=== PATIENT | female | born 1940 | race Caucasian/White ===

== ENCOUNTER → 2018-04-12 | Outpatient (CLI) | payer BC ==
--- NOTE | 2018-04-15 10:21 | MM ---
Reason for exam: screening (asymptomatic). Last mammogram was performed 1 year and 11 months ago. History: Patient is postmenopausal, history of other cancer, and is nulliparous. Took estrogen for 25 years. Physical Findings: A clinical breast exam by your physician is recommended on an annual basis and results should be correlated with mammographic findings. MG 3D Screening Mammo W/Cad Bilateral CC and MLO view(s) were taken. Prior study comparison: May 16, 2016, bilateral MG 3d screening mammo w/cad. The breast tissue is heterogeneously dense. This may lower the sensitivity of mammography. There is no discrete abnormality. No significant changes when compared with prior studies. ASSESSMENT: Benign, BI-RAD 2 RECOMMENDATION: Routine screening mammogram of both breasts in 1 year.
== END | disposition home or self-care (01) ==
LOC: RADMAMWWP 10:56
PROVIDERS: ATTEND Internal Medicine
DX: Z12.31 Encounter for screening mammogram for malignant neoplasm of breast (principal)
CPT/HCPCS: 77063; 77067

== ENCOUNTER 2024-02-14 10:41 | Observation (INO) | payer BC ==
--- NOTE | 2024-02-14 11:17 | ED ---
General Adult HPI - General Chief complaint: Chest Pain Stated complaint: Chest Pain Time Seen by Provider: 02/14/24 10:53 Source: patient, family Mode of arrival: ambulatory Limitations: no limitations - History of Present Illness Initial comments: Dictation was produced using [employer] dictation software. please excuse any grammatical, word or spelling errors. Chief Complaint: 84-year-old female presents to the emergency department for chest pressure History of Present Illness: Patient 84-year-old female she states she has a history of leaky valve. Presents to the emergency department after having chest pressure while walking. Patient states that she has no history of coronary artery disease. Denies any family history. Patient states while she was walking her pressure was noticeable. She went to rest and her symptoms resolved tried to walk again pressure came back. Chest pain is nonradiating. Does not go down the extremity or to the jaw or shoulder. No associated diaphoresis or nausea. The ROS documented in this emergency department record has been reviewed and confirmed by me. Those systems with pertinent positive or negative responses have been documented in the HPI. All other systems are other negative and/or noncontributory. - Related Data Home Medications Medication Instructions Recorded Confirmed Albuterol Inhaler [Ventolin Hfa 1 - 2 puff INHALATION RT-QID PRN 02/14/24 02/14/24 Inhaler] Alendronate Sodium [Fosamax] 70 mg PO FR 02/14/24 02/14/24 Atorvastatin [Lipitor] 10 mg PO HS 02/14/24 02/14/24 Calcium Carb/Mag Ox/Zinc Sulf 1 tab PO DAILY 02/14/24 02/14/24 [Ljs-Ztq-Qbqb 334-134-5 mg Tab] Cholecalciferol (Vitamin D3) 75 mcg PO DAILY 02/14/24 02/14/24 [Vitamin D3 (3000 Iu)] Metoprolol Succinate (ER) [Toprol 12.5 mg PO HS 02/14/24 02/14/24 Xl] amLODIPine [Norvasc] 5 mg PO HS 02/14/24 02/14/24 lisinopriL 40 mg PO HS 02/14/24 02/14/24 Allergies Allergy/AdvReac Type Severity Reaction Status Date / Time No Known Allergies Allergy Verified 02/14/24 11:25 Review of Systems ROS Statement: Those systems with pertinent positive or pertinent negative responses have been documented in the HPI. ROS Other: All systems not noted in ROS Statement are negative. Past Medical History Past Medical History: Hypertension Additional Past Medical History / Comment(s): aortic valve leaking Past Surgical History: Hysterectomy General Exam - General Exam Comments Initial Comments: PHYSICAL EXAM: General Impression: Alert and oriented x3, not in acute distress HEENT: Normocephalic atraumatic, extra-ocular movements intact, pupils equal and reactive to light bilaterally, mucous membranes moist. Cardiovascular: Heart regular rate and rhythm Chest: Able to complete full sentences, no retractions, no tachypnea Abdomen: abdomen soft, non-tender, non-distended, no organomegaly Musculoskeletal: Pulses present and equal in all extremities, no peripheral edema Motor: no focal deficits noted Neurological: CN II-XII grossly intact, no focal motor or sensory deficits noted Skin: Intact with no visualized rashes Psych: Normal affect and mood Limitations: no limitations Course Vital Signs 02/14/24 10:45 Temperature 97.4 F L Pulse Rate 73 Respiratory 20 Rate Blood Pressure 154/67 O2 Sat by Pulse 98 Oximetry EKG Findings - EKG Comments: EKG Findings:: My EKG interpretation: Ventricular rate 68, sinus rhythm,. 148, cures 94, QTc 421. No CO prolongation, no QTC prolongation, no ST or T-wave changes noted. Overall, this EKG is unremarkable Medical Decision Making - Medical Decision Making Was pt. sent in by a medical professional or institution ([facility], WAREHOUSE ASSOCIATE, urgent care, hospital, or detention...) When possible be specific @ -No Did you speak to anyone other than the patient for history (EMS, parent, family, police, friend...)? What history was obtained from this source @ -No Did you review nursing and triage notes (agree or disagree)? Why? @ -I reviewed and agree with nursing and triage notes Were old charts reviewed (outside hosp., previous admission, EMS record, old EKG, old radiological studies, urgent care reports/EKG's, detention records)? Report findings @ -No old charts were reviewed Differential Diagnosis (chest pain, altered mental status, abdominal pain women, abdominal pain men, vaginal bleeding, musculoskeletal, weakness, fever, dyspnea, syncope, headache, dizziness, GI bleed, back pain, seizure, CVA, palpatations, mental health)? @ -Differential Chest Pain: Stable Angina, Unstable Angina, STEMI, NSTEMI Aortic Dissection, Pneumothorax, Musculoskeletal, Esophageal Spasm GERD, Cholecystitis, Pancreatitis, Zoster, this is not meant to be an all-inclusive list. EKG interpreted by me (3pts min.). @ -See above X-rays interpreted by me (1pt min.). @ -Chest x-ray is nonacute CT interpreted by me (1pt min.). @ -None done U/S interpreted by me (1pt. min.). @ -None done What testing was considered but not performed or refused? (CT, X-rays, U/S, labs)? Why? @ -None What meds were considered but not given or refused? Why? @ -None Was smoking cessation discussed for >3mins.? @ -No Were there social determinants of health that impacted care today? How? (Homelessness, low income, unemployed, alcoholism, drug addiction, transportation, low edu. Level, literacy, decrease access to med. care, fdc, re hab)? @ -No Was there de-escalation of care discussed even if they declined (Discuss DNR or withdrawal of care, Hospice)? DNR status @ -No What co-morbidities impacted this encounter? (DM, HTN, Smoking, COPD, CAD, Cancer, CVA, ARF, Chemo, Hep., AIDS, mental health diagnosis, sleep apnea, morbid obesity)? @ -Old age Was patient admitted / discharged? Hospital course, mention meds given and route , prescriptions, significant lab abnormalities, going to OR and other pertinent info. @ -84-year-old female presents to the ER for exertional chest pressure. Vital signs stable. EKG is unremarkable. Labs and imaging are negative. Troponin is negative. Patient has elevated heart score will be admitted with consultation to cardiology. Patient given aspirin. Patient agreeable with disposition plan. Did you discuss the management of the patient with other professionals (professionals i.e. , PA, WAREHOUSE ASSOCIATE, lab, RT, psych nurse, social media specialist, senior sustainability advisor, teacher, health officer, rehabilitation caseworker)? Give summary @ -No Was critical care preformed (if so, how long)? @ -No Undiagnosed new problem with uncertain prognosis? @ -No Drug Therapy requiring intensive monitoring for toxicity (Heparin, Nitro, Insulin, Cardizem)? @ -No Were any procedures done? @ -No Diagnosis/symptom? Acute, or Chronic, or Acute on Chronic? Uncomplicated (without systemic symptoms) or Complicated (systemic symptoms)? @ -Unstable angina Side effects of treatment? @ -No Exacerbation, Progression, or Severe Exacerbation? @ -No Poses a threat to life or bodily function? How? (Chest pain, [place], [place], pneumonia, PE, COPD, DKA, ARF, appy, cholecystitis, CVA, Diverticulitis, Homicidal, Suicidal, threat to staff... and all critical care pts) @ -yes - Lab Data Result diagrams: 02/14/24 10:57 02/14/24 10:57 Lab Results 02/14/24 02/14/24 02/14/24 Range/Units 10:57 10:57 10:57 WBC 7.3 (3.8-10.6) k/uL RBC 3.80 (3.80-5.40) m/uL Hgb 11.6 (11.4-16.0) gm/dL Hct 36.8 (34.0-46.0) % MCV 96.7 (80.0-100.0) fL MCH 30.4 (25.0-35.0) pg MCHC 31.4 (31.0-37.0) g/dL RDW 12.4 (11.5-15.5) % Plt Count 320 (150-450) k/uL MPV 8.0 Neutrophils % 59 % Lymphocytes % 30 % Monocytes % 6 % Eosinophils % 2 % Basophils % 1 % Neutrophils # 4.3 (1.3-7.7) k/uL Lymphocytes # 2.2 (1.0-4.8) k/uL Monocytes # 0.4 (0-1.0) k/uL Eosinophils # 0.2 (0-0.7) k/uL Basophils # 0.1 (0-0.2) k/uL PT 10.2 (10.0-12.5) sec INR 0.9 (<1.2) APTT 23.7 (22.0-30.0) sec Sodium 137 (137-145) mmol/L Potassium 5.2 H (3.5-5.1) mmol/L Chloride 107 (98-107) mmol/L Carbon Dioxide 23 (22-30) mmol/L Anion Gap 7 mmol/L BUN 18 H (7-17) mg/dL Creatinine 0.88 (0.52-1.04) mg/dL Est GFR (CKD-EPI)AfAm 69 (>60 ml/min/1.73 sqM) Est GFR (CKD-EPI)NonAf 60 (>60 ml/min/1.73 sqM) Glucose 105 H (74-99) mg/dL Calcium 10.1 (8.4-10.2) mg/dL Magnesium 1.8 (1.6-2.3) mg/dL Total Bilirubin 0.6 (0.2-1.3) mg/dL AST 29 (14-36) U/L ALT 17 (4-34) U/L Alkaline Phosphatase 86 (38-126) U/L Troponin I (0.000-0.034) ng/mL Total Protein 6.7 (6.3-8.2) g/dL Albumin 4.3 (3.5-5.0) g/dL 02/14/24 Range/Units 10:57 WBC (3.8-10.6) k/uL RBC (3.80-5.40) m/uL Hgb (11.4-16.0) gm/dL Hct (34.0-46.0) % MCV (80.0-100.0) fL MCH (25.0-35.0) pg MCHC (31.0-37.0) g/dL RDW (11.5-15.5) % Plt Count (150-450) k/uL MPV Neutrophils % % Lymphocytes % % Monocytes % % Eosinophils % % Basophils % % Neutrophils # (1.3-7.7) k/uL Lymphocytes # (1.0-4.8) k/uL Monocytes # (0-1.0) k/uL Eosinophils # (0-0.7) k/uL Basophils # (0-0.2) k/uL PT (10.0-12.5) sec INR (<1.2) APTT (22.0-30.0) sec Sodium (137-145) mmol/L Potassium (3.5-5.1) mmol/L Chloride (98-107) mmol/L Carbon Dioxide (22-30) mmol/L Anion Gap mmol/L BUN (7-17) mg/dL Creatinine (0.52-1.04) mg/dL Est GFR (CKD-EPI)AfAm (>60 ml/min/1.73 sqM) Est GFR (CKD-EPI)NonAf (>60 ml/min/1.73 sqM) Glucose (74-99) mg/dL Calcium (8.4-10.2) mg/dL Magnesium (1.6-2.3) mg/dL Total Bilirubin (0.2-1.3) mg/dL AST (14-36) U/L ALT (4-34) U/L Alkaline Phosphatase (38-126) U/L Troponin I <0.012 (0.000-0.034) ng/mL Total Protein (6.3-8.2) g/dL Albumin (3.5-5.0) g/dL Disposition Clinical Impression: Unstable angina Disposition: ADMITTED IP TO THIS HOSP Condition: Fair Referrals: Cheo Chairez MD [Primary Care Provider] - 1-2 days Decision Time: 12:41
[2024-02-14 11:20] LABS: Basophils # (A) 0.1 k/uL (0-0.2); Basophils % (A) 1 %; Eosinophils # (A) 0.2 k/uL (0-0.7); Eosinophils % (A) 2 %; HCT 36.8 % (34.0-46.0); HGB 11.6 gm/dL (11.4-16.0); Lymphocytes # (A) 2.2 k/uL (1.0-4.8); Lymphocytes % (A) 30 %; MCH 30.4 pg (25.0-35.0); MCHC 31.4 g/dL (31.0-37.0); MCV 96.7 fL (80.0-100.0); Monocytes # (A) 0.4 k/uL (0-1.0); Monocytes % (A) 6 %; Neutrophils # (A) 4.3 k/uL (1.3-7.7); Neutrophils % (A) 59 %; Platelet Count 320 k/uL (150-450); RDW 12.4 % (11.5-15.5); WBC 7.3 k/uL (3.8-10.6)
[2024-02-14 11:27] LABS: INR 0.9 (<1.2); Partial Thromboplastin Time 23.7 sec (22.0-30.0); Prothrombin Time 10.2 sec (10.0-12.5)
[2024-02-14] MEDS: ASPIRIN 81 MG PO STA (11:27)
--- NOTE | 2024-02-14 11:37 | XR ---
EXAMINATION TYPE: XR chest 2V DATE OF EXAM: 02/14/2024 11:30 AM CLINICAL INDICATION:Female, 84 years old with history of Chest Pain; [facility] COMPARISON: Chest radiographs from 02/14/2024. TECHNIQUE: XR chest 2V Frontal and lateral views of the chest. FINDINGS: Lungs/Pleura: There is flattening of the diaphragm with increased lucency of the lungs. No evidence o f pneumothorax, pleural effusion or focal consolidation. Pulmonary vascularity: Unremarkable. Heart/mediastinum: Cardiomediastinal silhouette is unremarkable. Musculoskeletal: No acute osseous pathology. IMPRESSION: 1. No acute cardiopulmonary disease process. 2. COPD changes.
[2024-02-14 11:38] LABS: ALT 17 U/L (4-34); AST 29 U/L (14-36); African American GFR (CKD) 69 (>60 ml/min/1.73 sqM); Albumin 4.3 g/dL (3.5-5.0); Alkaline Phosphatase 86 U/L (38-126); Anion Gap 7 mmol/L; Blood Urea Nitrogen 18 mg/dL (7-17); Calcium 10.1 mg/dL (8.4-10.2); Carbon Dioxide 23 mmol/L (22-30); Chloride 107 mmol/L (98-107); Glucose 105 mg/dL (74-99); Magnesium 1.8 mg/dL (1.6-2.3); Non-African American GFR(CKD) 60 (>60 ml/min/1.73 sqM); Potassium 5.2 mmol/L (3.5-5.1); Sodium 137 mmol/L (137-145); Total Bilirubin 0.6 mg/dL (0.2-1.3); Total Protein 6.7 g/dL (6.3-8.2)
[2024-02-14] MEDS ORDERED: NITROGLYCERIN SL TABS 0.4 MG TAB SUBLINGUAL PRN (12:39)
[2024-02-14] MEDS ORDERED: ALBUTEROL NEBULIZED 2.5 MG/3 ML INHALATION PRN (15:07)
[2024-02-14] MEDS: ATORVASTATIN 10 MG TAB PO SCH (22:32)
[2024-02-14] MEDS: METOPROLOL SUCCINATE (ER) 25 MG TAB.ER.24H PO SCH (22:32)
[2024-02-14] MEDS: amLODIPine 5 MG TAB PO SCH (22:32)
[2024-02-14] MEDS: lisinopriL 20 MG TAB PO SCH (22:32)
--- NOTE | 2024-02-14 22:37 | HP ---
HISTORY AND PHYSICAL CHIEF COMPLAINT: Chest pressure. HISTORY OF PRESENT ILLNESS: This is an 84-year-old woman with a past medical history of hypertension, aortic regurgitation, was complaining of chest pressure, which was felt in the anterior part of the chest and the pain was reproducible while walking and the patient came to [facility] and admitted for further evaluation and treatment. Initial workup was negative. There is no history of any fever, rigors, or chills at this time. PAST MEDICAL HISTORY: Hypertension, aortic regurgitation, hysterectomy. Rest of the history and rest of the chart is also reviewed. HOME MEDICATIONS: Reviewed include Lipitor, dose and rest of medications reviewed. ALLERGIES: None. FAMILY HISTORY: No history of heart disease or strokes in the family. SOCIAL HISTORY: No history of smoking or alcohol. REVIEW OF SYSTEMS: Fourteen-point review is negative except as mentioned earlier. PHYSICAL EXAMINATION: VITAL SIGNS: Pulse 73, blood pressure 150/60, respirations 20. HEENT: Conjunctivae normal. NECK: No JVD. CARDIOVASCULAR: S1-S4 present. RESPIRATIONS: Breath sounds diminished at the bases. ABDOMEN: Soft, nontender. LEGS: No edema. NERVOUS SYSTEM: No focal deficits. SKIN: No ulcer, rash, bleeding. JOINTS: No active deforming arthropathy. LABORATORY DATA: Reviewed. ASSESSMENT: 1. Chest pain, possible unstable angina. 2. Hypertension. 3. Aortic regurgitation. 4. Hysterectomy. RECOMMENDATIONS: In this 84-year-old woman, who presented with multiple complex medical issues, we will monitor the patient closely. I would recommend to continue the current medications. Rule out myocardial infarction. Cardiology consultation. Possible stress test. Resume the home medications once they are confirmed. Further recommendations to follow. MMODL / IJN: [id number] /
[2024-02-15] MEDS: NON FORMULARY DRUG (Calcium Carb/Mag Ox/Zinc Sulf [Cal-Mag-Zinc 334-134-5 Mg Tab] 1 EACH T PO SCH (08:07)
[2024-02-15] MEDS: ASPIRIN 325 MG TAB PO SCH (08:12)
[2024-02-15] MEDS: CHOLECALCIFEROL 25 MCG (1000 IU) TABLET PO SCH (08:13)
[2024-02-15] MEDS: hydrALAZINE HCL 25 MG TAB PO STA (08:37)
[2024-02-15 08:44] LABS: Basophils # (A) 0.06 X 10*3/uL (0.00-0.10); Basophils % (A) 0.7 %; Eosinophils # (A) 0.19 X 10*3/uL (0.04-0.35); Eosinophils % (A) 2.2 %; HCT 34.1 % (37.2-46.3); HGB 11.3 g/dL (12.0-15.0); Lymphocytes # (A) 2.32 X 10*3/uL (0.90-5.00); Lymphocytes % (A) 27.2 %; MCH 31.6 pg (27.0-32.0); MCHC 33.1 g/dL (32.0-37.0); MCV 95.3 FL (80.0-97.0); Mean Platelet Volume 10.8 FL (9.5-12.2); Monocytes # (A) 0.64 X 10*3/uL (0.20-1.00); Monocytes % (A) 7.5 %; NRBC Per 100 WBC 0 X 10*3/uL (0.00-0.01); Neutrophils % (A) 62.2 %; Platelet Count 307 X 10*3/uL (140-440); RBC 3.58 X 10*6/uL (4.10-5.20); RDW 12.2 % (11.5-14.5); WBC 8.53 X 10*3/uL (4.50-10.00)
[2024-02-15 08:47] LABS: Blood Urea Nitrogen 14.4 mg/dL (9.0-27.0); Calcium 9.8 mg/dL (8.7-10.3); Carbon Dioxide 21.3 mmol/L (21.6-31.8); Chloride 106 mmol/L (96-109); Chol/HDL Ratio 2.21 Ratio; Glucose 95 mg/dL (70-110); LDL Cholesterol,Calculated 54.4 mg/dL (0.0-131.0); Potassium 4.6 mmol/L (3.5-5.5); Sodium 139 mmol/L (135-145); VLDL Calculation 13.46 mg/dL (5.00-40.00)
--- NOTE | 2024-02-15 10:06 | P.CRDCN ---
History of Present Illness Consult date: 02/15/24 Consult reason: chest pain History of present illness: This is an 84-year-old female patient of Dr. Coello at [facility] with past medical history of hypertension, hyperlipidemia. She denies history of coronary artery disease. 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 She does state that she has a leaky valve which she has been told is moderate to severe. She is scheduled for a stress test and carotid duplex in the fall while in [place]. Patient presented to the emergency center due to chest pressure while walking. She states that she developed some tightness in her chest that started at the beginning of the week and thought her breathing was heavy as well. She thought it was related to the humidity. She denies any lower extremity edema. She states she walked along the river and developed the chest pressure and in general did not feel very good. She sat down and the pain went away. She states she normally walks about 1 mile in the morning and a total of 2 miles each day. She denies having any chest pain at the time of this evaluation. Blood pressure 133/72, heart rate 66, pulse ox 96% on room air. EKG: Sinus rhythm with no acute ST-T wave changes Chest x-ray: No acute process. COPD changes. Laboratory studies: Hemoglobin 11.6. Potassium 5.2, BUN 18 creatinine 0.88. Troponin negative x 3. Home cardiac medications: Amlodipine 5 mg at bedtime, atorvastatin 10 mg at bedtime, lisinopril 40 mg at bedtime, metoprolol succinate 12.5 mg at bedtime. Review Of Systems: At the time of my exam: CONSTITUTIONAL: Denies fever or chills. HEENT: Denies blurred vision, vision changes, or eye pain. Denies hemoptysis CARDIOVASCULAR: Denies chest pain. Denies orthopnea. Denies PND. Denies p alpitations RESPIRATORY: Denies shortness of breath. GASTROINTESTINAL: Denies abdominal pain. Denies nausea or vomiting. HEMATOLOGIC: Denies bleeding disorders. GENITOURINARY: Denies any blood in urine. SKIN: Denies puritis. Denies rash. Physical examination: Gen: This is an 84-year-old female in no acute distress VS: reviewed HEENT: Head is atraumatic, normocephalic. Pupils equal, round. Sclerae is anicteric. NECK: Supple. No JVD. LUNGS: Clear to auscultation. No wheezes or rhonchi. No intercostal retractions. HEART: Regular rate and rhythm. Systolic murmur. ABDOMEN: Soft No tenderness. EXTREMITIES: No pedal edema. No calf tenderness. NEUROLOGICAL: Patient is awake, alert and oriented x3. Assessment: Atypical chest pain, acute coronary syndrome ruled out with negative troponins x 3 Hypertension Hyperlipidemia Plan: Resume patient's home cardiac medications Obtain stress echocardiogram today Obtain 2-D echocardiogram and Doppler study to assess cardiac structure and fun ction If testing is unremarkable, patient is cleared for discharge from cardiology and may follow-up with her primary market basket maker in 1 to 2 weeks. Thank you kindly for this consultation. Nurse practitioner note has been reviewed, I agree with documented findings and plan of care. Patient was seen and examined. Past Medical History Past Medical History: Hypertension Additional Past Medical History / Comment(s): aortic valve leaking History of Any Multi-Drug Resistant Organisms: None Reported Past Surgical History: Hysterectomy Past Anesthesia/Blood Transfusion Reactions: No Reported Reaction Past Psychological History: No Psychological Hx Reported Smoking Status: Never smoker Medications and Allergies Home Medications Medication Instructions Recorded Confirmed Type Albuterol Inhaler [Ventolin Hfa 1 - 2 puff INHALATION RT-QID PRN 02/14/24 02/14/24 History Inhaler] Alendronate Sodium [Fosamax] 70 mg PO FR 02/14/24 02/14/24 History Atorvastatin [Lipitor] 10 mg PO HS 02/14/24 02/14/24 History Calcium Carb/Mag Ox/Zinc Sulf 1 tab PO DAILY 02/14/24 02/14/24 History [Fyx-Rik-Xeow 334-134-5 mg Tab] Cholecalciferol (Vitamin D3) 75 mcg PO DAILY 02/14/24 02/14/24 History [Vitamin D3 (3000 Iu)] Metoprolol Succinate (ER) [Toprol 12.5 mg PO HS 02/14/24 02/14/24 History Xl] amLODIPine [Norvasc] 5 mg PO HS 02/14/24 02/14/24 History lisinopriL 40 mg PO HS 02/14/24 02/14/24 History Allergies Allergy/AdvReac Type Severity Reaction Status Date / Time No Known Allergies Allergy Verified 02/14/24 11:25 Physical Exam Vitals: Vital Signs Temp Pulse Pulse Resp BP BP Pulse Ox 02/15/24 03:40 98.5 F 66 16 133/72 96 02/14/24 20:47 97.7 F 64 16 172/71 98 02/14/24 19:54 67 16 164/70 98 02/14/24 18:00 60 18 168/64 97 02/14/24 16:00 66 20 115/59 99 02/14/24 15:09 63 16 166/66 99 02/14/24 10:45 97.4 F L 73 20 154/67 98 Intake and Output 02/14/24 02/15/24 02/15/24 22:59 06:59 14:59 Other: # Voids 2 1 Results 02/15/24 04:01 02/15/24 03:57 Cardiac Enzymes 02/14/24 02/14/24 02/14/24 Range/Units 10:57 10:57 13:18 AST 29 (14-36) U/L Troponin I <0.012 <0.012 (0.000-0.034) ng/mL 02/14/24 Range/Units 16:13 AST (14-36) U/L Troponin I <0.012 (0.000-0.034) ng/mL Coagulation 02/14/24 Range/Units 10:57 PT 10.2 (10.0-12.5) sec APTT 23.7 (22.0-30.0) sec CBC 02/14/24 Range/Units 10:57 WBC 7.3 (3.8-10.6) k/uL RBC 3.80 (3.80-5.40) m/uL Hgb 11.6 (11.4-16.0) gm/dL Hct 36.8 (34.0-46.0) % Plt Count 320 (150-450) k/uL Comprehensive Metabolic Panel 02/14/24 Range/Units 10:57 Sodium 137 (137-145) mmol/L Potassium 5.2 H (3.5-5.1) mmol/L Chloride 107 (98-107) mmol/L Carbon Dioxide 23 (22-30) mmol/L BUN 18 H (7-17) mg/dL Creatinine 0.88 (0.52-1.04) mg/dL Glucose 105 H (74-99) mg/dL Calcium 10.1 (8.4-10.2) mg/dL AST 29 (14-36) U/L ALT 17 (4-34) U/L Alkaline Phosphatase 86 (38-126) U/L Total Protein 6.7 (6.3-8.2) g/dL Albumin 4.3 (3.5-5.0) g/dL Current Medications Generic Name Dose Route Start Last Admin Trade Name Rebecca PRN Reason Stop Dose Admin Albuterol Sulfate 2 mg 02/14/24 15:07 Albuterol Nebulized 2.5 Mg/3 Ml INHALATION RT-QID PRN Shortness Of Breath Amlodipine Besylate 5 mg 02/14/24 21:00 02/14/24 22:32 Amlodipine 5 Mg Tab PO 5 mg HS NEVIN Administration Aspirin 325 mg 02/15/24 09:00 Aspirin 325 Mg Tab PO DAILY NEVIN Atorvastatin Calcium 10 mg 02/14/24 21:00 02/14/24 22:32 Atorvastatin 10 Mg Tab PO 10 mg HS NEVIN Administration Cholecalciferol 75 mcg 02/15/24 09:00 Cholecalciferol 25 Mcg (1000 Iu) Tablet PO DAILY NEVIN Lisinopril 40 mg 02/14/24 21:00 02/14/24 22:32 Lisinopril 20 Mg Tab PO 40 mg HS NEVIN Administration Metoprolol Succinate 12.5 mg 02/14/24 21:00 02/14/24 22:32 Metoprolol Succinate (Er) 25 Mg Tab.Er.24h PO 12.5 mg HS NEVIN Administration Nitroglycerin 0.4 mg 02/14/24 12:39 Nitroglycerin Sl Tabs 0.4 Mg Tab SUBLINGUAL Q5M PRN Chest Pain Non-Formulary Medication 1 tab 02/15/24 09:00 Calcium Carb/Mag Ox/Zinc Sulf [Fro-Idp-Rqrg 334-134-5 Mg Tab] PO DAILY NEVIN Intake and Output 02/14/24 02/15/24 02/15/24 22:59 06:59 14:59 Other: # Voids 2 1 02/14/24 10:57 02/14/24 10:57
--- NOTE | 2024-02-15 13:33 | CA ---
Stress Echo Report Drea Serrano Age: 84 Gender: F : 1940 Exam Date: 02/15/2024 12:35 Exam Location: [place] Stress Ht (in): 62 Wt (lb): 127 Ordering Physician: Leonides Saravia MD ([id number]) Referring Physician: LEONIDES SARAVIA,, Porcelain Enamel Installer: [employer] Technologist Procedure CPT: Indication: Chest Pain ICD-9 Codes: Rhythm: Patient History: Cardiac Medications: see chart Medications in past 24 hours: Contrast: N/A Stress Results Protocol: Enrique Total dose(mL): NA Exercise Duration (min:sec): 3:[address] Depression (mm): Angina Score: Benítez Score: METS: 5.2 Resting HR: 89 Resting BP: 142 / 58 Peak HR: 119 Peak BP: 176 / 41 Max Predicted HR: 134 89 % Max Predicted HR Target HR: 114 Double Product: [id number] Stress Summary: BP Response: Reason for Termination: MAX EXERTION/TARGET HR Cardiac Symptoms: DIFFICULTY IN BREATHING ECG Analysis Resting ECG: Normal sinus rhythm, normal axis Stress ECG: No significant ST-T wave changes that are diagnostic for ischemia by ST segment analysis Arrhythmia: There were no sustained arrhythmias or ectopic beats noted during the stress Echo Analysis Resting Echo: Normal global and segmental systolic function. No resting regional wall motion abnormality Peak Echo Analysis: Normal augmentation of global and segmental systolic function. No stress-induced regional wall motion abnormality MEASUREMENTS (Male/Female) Normal Values CONCLUSIONS Fair exercise tolerance for age achieving 5.2 METS Nonischemic ECG and echocardiographic response to treadmill exercise Normal hemodynamic and clinical response to treadmill exercise Overall normal treadmill echo Dr Leonides Saravia (Electronically Signed) Final Date: 15 February 2024 13:33
[2024-02-15 14:21] VITALS: BP 114/61; PULSE 62; RESP 16; TEMP 97.8
--- NOTE | 2024-02-15 17:55 | CA ---
Transthoracic Echo Report Name: Drea Serrano Age: 84 Gender: F : 1940 Exam Date: 02/15/2024 09:18 Exam Location: [facility] Ht (in): 62 Wt (lb): 127 Ordering Physician: Leonides Leroy MD ([id number]) Attending/Referring Phys: Sandal Parts Assembler Eugenia Hamilton RDCS Procedure CPT: Indications: lvh, valves Cardiac Hx: Technical Quality: Good Contrast 1: Total Dose (mL): Contrast 2: Total Dose (mL): MEASUREMENTS (Male / Female) Normal Values 2D ECHO LV Diastolic Diameter PLAX 5.0 cm 4.2 - 5.9 / 3.9 - 5.3 cm LV Systolic Diameter PLAX 3.5 cm IVS Diastolic Thickness 1.0 cm 0.6 - 1.0 / 0.6 - 0.9 cm LVPW Diastolic Thickness 0.9 cm 0.6 - 1.0 / 0.6 - 0.9 cm LV Relative Wall Thickness 0.4 RV Internal Dim ED PLAX 3.3 cm LA Systolic Diameter LX 3.8 cm 3.0 - 4.0 / 2.7 - 3.8 cm LV Diastolic Volume MOD BP 64.8 cm??? 67 - 155 / 56 - 104 cm??? LV Systolic Volume MOD BP 25.1 cm??? - / 19 - 49 cm??? LV Ejection Fraction MOD BP 61.3 % >= 55 % LV Cardiac Index MOD BP 1519.2 cm???/min???m??? LV Diastolic Volume MOD 4C 64.7 cm??? LV Systolic Volume MOD 4C 25.4 cm??? LV Ejection Fraction MOD 4C 60.7 % LV Cardiac Index MOD 4C 1502.5 cm???/min???m??? LV Diastolic Length 4C 5.3 cm LV Systolic Length 4C 5.4 cm LV Diastolic Volume MOD 2C 61.0 cm??? LV Systolic Volume MOD 2C 13.1 cm??? LV Ejection Fraction MOD 2C 78.6 % LV Cardiac Index MOD 2C 1834.0 cm???/min???m??? LV Diastolic Length 2C 5.7 cm LV Systolic Length 2C 2.6 cm LA Volume 58.2 cm??? 18 - 58 / 22 - 52 cm??? LA Volume Index 36.5 cm???/m??? 16 - 28 cm???/m??? M-MODE Aortic Root Diameter MM 3.4 cm AV Cusp Separation MM 2.0 cm DOPPLER AV Peak Velocity 103.2 cm/s AV Peak Gradient 4.3 mmHg AI Peak Velocity 387.7 cm/s AI Peak Gradient 60.1 mmHg AI Pressure Half Time 980.5 ms MR Peak Velocity 598.9 cm/s MR Peak Gradient 143.5 mmHg TR Peak Velocity 279.6 cm/s TR Peak Gradient 31.3 mmHg Right Ventricular Systolic Press 36.2 mmHg FINDINGS Left Ventricle Left ventricular ejection fraction is estimated at 55-60 %. Left ventricular cavity size normal. Left ventricular wall thickness normal. Normal left ventricular wall motion. Mildly increased septal wall thickness. Right Ventricle Normal RV size and systolic function. Mild pulmonary hypertension. Right Atrium Normal right atrial size. No right atrial thrombus or mass seen. Left Atrium Mildly increased left atrial volume. Mildly increased left atrial area. Mitral Valve Mitral valve thickened. Mild Prolapse of the posterior mitral valve leaflet. Moderate mitral regurgitation. Aortic Valve Trileaflet aortic valve. Mild aortic regurgitation. Tricuspid Valve Structurally normal tricuspid valve. Mild tricuspid regurgitation. Pulmonic Valve Structurally normal pulmonic valve. Mild pulmonic regurgitation. Pericardium No pericardial effusion. No pleural effusion. Aorta Normal size aortic root and proximal ascending aorta. CONCLUSIONS Left ventricular ejection fraction is estimated at 55-60 %. No obvious regional wall motion abnormality Normal RV size and systolic function. RVSP estimated at 36 mmHg Moderate mitral regurgitation. Mild aortic regurgitation Previewed by: Dr Leonides Leroy (Electronically Signed) Final Date: 15 February 2024 17:55
--- NOTE | 2024-02-16 19:10 | P.DS ---
Providers Date of admission: 02/14/24 12:40 Expected date of discharge: 02/15/24 Attending physician: Wali Garcia Consults: 02/14/24 12:39 Consult Physician Urgent Consulting Provider: Leonides Leroy Consult Reason/Comments: chest pain Do you want consulting provider notified?: Yes Primary care physician: Cheo Chairez Hospital Course: Final diagnosis Chest pain, ruled out ACS, stress testing was negative Possible unstable angina Hypertension Aortic regurgitation GI prophylaxis DVT prophylaxis Full code Discharge disposition Patient is being discharged in a stable condition with guarded prognosis to home. Patient will follow-up with Dr. Nicole in the outpatient setting upon discharge. Patient is to continue with aspirin daily and close outpatient follow-up with cardiology as scheduled. Total time taken is greater than 35 minutes. Hospital course This is a 84-year-old female who was recently admitted with chest pain possibly unstable angina being closely monitored with cardiology following. Cardiology recommending stress testing which was negative. Patient has been cleared by cardiology for outpatient follow-up. Patient instructed to follow-up with primary care provider in the outpatient setting. Please refer to cardiology note for further HPI. Currently no reports of chest pain, shortness of breath, or palpitations. Patient is afebrile. No reports of nausea or vomiting and patient is tolerating diet. Patient will be discharged home today. Physical exam: Gen: This is a 84-year-old female who is awake, alert and oriented x 3, well- developed, thin built HEENT: Head is atraumatic, normocephalic. Pupils equal, round. Sclerae is anicteric. NECK: Supple. No JVD. No lymphadenopathy. No thyromegaly. LUNGS: Clear to auscultation. No wheezes or rhonchi. No intercostal retractions. HEART: Regular rate and rhythm. No murmur. ABDOMEN: Soft. Bowel sounds are present. No masses. No tenderness. EXTREMITIES: No pedal edema. No calf tenderness. NEUROLOGICAL: Patient is awake, alert and oriented x3. Cranial nerves 2 through 12 are grossly intact. Please refer to medication reconciliation sheet for a list of medications. The impression and plan of care has been dictated by Eve Coronel, Nurse Practitioner as directed. Dr. Jose MD I have performed a history and examination and MDM of this patient, discussed the same with the dictator, and agree with the dictator's assessment and plan as written ,documented as a scribe. Based on total visit time, I have performed more than 50% of the visit. Patient Condition at Discharge: Fair Plan - Discharge Summary Discharge Rx Participant: No New Discharge Prescriptions: New Aspirin 81 mg PO DAILY #30 tab Continue Cholecalciferol (Vitamin D3) [Vitamin D3 (3000 Iu)] 75 mcg PO DAILY Calcium Carb/Mag Ox/Zinc Sulf [Kzc-Oyg-Iypa 334-134-5 mg Tab] 1 tab PO DAILY amLODIPine [Norvasc] 5 mg PO HS Alendronate Sodium [Fosamax] 70 mg PO FR Atorvastatin [Lipitor] 10 mg PO HS Metoprolol Succinate (ER) [Toprol XL] 12.5 mg PO HS lisinopriL 40 mg PO HS Albuterol Inhaler [Ventolin Hfa Inhaler] 1 - 2 puff INHALATION RT-QID PRN PRN Reason: Shortness Of Breath Discharge Medication List Albuterol Inhaler [Ventolin Hfa Inhaler] 1 - 2 puff INHALATION RT-QID PRN 02/14/24 [History] Alendronate Sodium [Fosamax] 70 mg PO FR 02/14/24 [History] Atorvastatin [Lipitor] 10 mg PO HS 02/14/24 [History] Calcium Carb/Mag Ox/Zinc Sulf [Ext-Ghv-Ygfq 334-134-5 mg Tab] 1 tab PO DAILY 02/14/24 [History] Cholecalciferol (Vitamin D3) [Vitamin D3 (3000 Iu)] 75 mcg PO DAILY 02/14/24 [History] Metoprolol Succinate (ER) [Toprol XL] 12.5 mg PO HS 02/14/24 [History] amLODIPine [Norvasc] 5 mg PO HS 02/14/24 [History] lisinopriL 40 mg PO HS 02/14/24 [History] Aspirin 81 mg PO DAILY #30 tab 02/15/24 [Rx] Follow up Appointment(s)/Referral(s): Cheo Chairez MD [Primary Care Provider] - 1-2 days Tuan Coello MD [REFERRING] - 1 Week Leonides Leroy MD [Medical Doctor] - As Needed (Follow-up with your duty engineer outpatient) Activity/Diet/Wound Care/Special Instructions: Activity limited until follow-up Follow-up with primary care provider on discharge Follow-up with cardiology outpatient Discharge Disposition: HOME SELF-CARE
== END 2024-02-15 15:08 | disposition home or self-care (01) ==
LOC: EC 10:41 → 6NMEDSUR 12:40
PROVIDERS: ADMIT Hospitalist; ATTEND Hospitalist
DX: R07.89 Other chest pain (principal); I10 Essential (primary) hypertension; I35.1 Nonrheumatic aortic (valve) insufficiency; E78.5 Hyperlipidemia, unspecified; J44.9 Chronic obstructive pulmonary disease, unspecified; Z79.83 Long term (current) use of bisphosphonates; Z79.899 Other long term (current) drug therapy; Z90.710 Acquired absence of both cervix and uterus
CPT/HCPCS: 99285; 36415; 93005; 93306; 93351; 80061; 80053; 80048; 83735; 84484; 85025 ×2; 85610; 85730; 71046; G0378 ×2